=== PATIENT | female | born 1990 ===

== ENCOUNTER 2023-09-26 00:11 | Emergency (ER) | payer BC ==
[2023-09-26] MEDS ORDERED: Acetaminophen 500 MG TAB ONE (01:18)
[2023-09-26] MEDS ORDERED: Ondansetron PF 4 MG/2 ML Vial ONE ×2 (01:18→01:22)
== END 2023-09-26 02:20 | disposition home or self-care (01) ==
LOC: CSHERS 00:11
DX: J02.0 Streptococcal pharyngitis (principal); E86.0 Dehydration
CPT/HCPCS: 96374; J2405